=== PATIENT | male | born 1950 | race Caucasian/White ===

== ENCOUNTER 2019-01-21 15:58 | Emergency (ER) | payer OTHER ==
[2019-01-21 16:09] VITALS: BP 153/75; TEMP 98.1; BMI 36.1
--- NOTE | 2019-01-21 17:02 | DI ---
EXAM: Three views of the left elbow. History: Left elbow trauma. Findings: Mildly displaced fracture of the radial neck. Joint effusion is seen at the elbow. No di slocation. Impression: Mildly displaced radial neck fracture
--- NOTE | 2019-01-21 17:04 | DI ---
Exam: Three-view left hand. Date: 01/21/2019. Comparison: None. HISTORY: Pain. FINDINGS: The soft tissues are within normal limits. The mineralization is normal. The bones are i ntact and no fracture is observed. The metacarpal phalangeal joints and interphalangeal joints are m aintained. Impression: No acute osseous abnormality in the left hand.
--- NOTE | 2019-01-21 17:05 | DI ---
Exam: Three-view left wrist. Date: 01/21/2019. Comparison: None. HISTORY: Pain after a fall. FINDINGS: The soft tissues are within normal limits. The mineralization is normal. The bones are i ntact and no fracture or dislocation is observed. A cleft is identified in the mid body of the scaph oid adjacent to the capitate but this does not appear to represent a fracture. The joint spaces are preserved. Impression: No acute osseous abnormality in the left wrist.
--- NOTE | 2019-01-21 17:48 | ED.PDOC ---
General ED Provider: Dr. PARAMJIT ANNE Chief Complaint: Fall Stated Complaint: ELBOW PAIN LEFT SIDE AFTER A FALL ALSO HAS WRIST PAIN Time Seen by Physician: 16:00 Mode of Arrival: Walk-In Information Source: Patient Exam Limitations: No limitations Primary Care Provider: BALWINDER BARON Nursing and Triage Documentation Reviewed and Agree: Yes Does patient meet sepsis criteria?: No System Inflammatory Response Syndrome: Not Applicable Sepsis Protocol: For patient's 13 years and over: Temp is 96.8 and below OR 101 and greater Pulse >90 BPM Resp >20/minute Acutely Altered Mental Status Are patient's symptoms suggestive of a new infection, such as: -Pneumonia -Skin, Soft Tissue -Endocarditis -UTI -Bone, Joint Infection -Implantable Device -Acute Abdominal Infection -Wound Infection -Meningitis -Blood Stream Catheter Infection -Unknown Musculoskeletal Complaint Exam - Upper Extremity Complaint/Exam Location of Pain: Reports: Left (ELBOW), Elbow, Wrist (LEFT) Onset/Duration: TODAY Symptoms Are: Still present Timing: Constant Episodes Lasting: Hours Initial Severity: Moderate Current Severity: Moderate Location: Reports: Discrete (ELBOW) Character: Reports: Dull Aggravating: Reports: Movement, Lifting, Flexion, Extension, Internal rotation, External rotation, Abduction Alleviating: Reports: Rest Non-Orthopedic Risk Factors: Reports: None DVT Risk Factors: Reports: None Septic Arthritis Risk Factors: Reports: None Related Surgical History: Reports: None Upper Extremity Findings: Present: Tenderness (ELBOW ). Absent: Swelling, Ecchymosis, Abnormal contour, Rotation, Ligamentous instability, Laceration, Erythema, Warmth, Blisters, Foreign body NV Bundle Intact Distal to Injury: No Compartment Syndrome Risk Factors: Present: Pain Differential Diagnoses: Closed Fracure Review of Systems - Review Of Systems Constitutional: Reports: No symptoms Eyes: Reports: No symptoms Ears, Nose, Mouth, Throat: Reports: No symptoms Respiratory: Reports: No symptoms Cardiac: Reports: No symptoms GI: Reports: No symptoms : Reports: No symptoms Musculoskeletal: Reports: Joint pain (ELBOW WRIST LEFT) Skin: Reports: No symptoms Neurological: Reports: No symptoms Endocrine: Reports: No symptoms Hematologic/Lymphatic: Reports: No symptoms All Other Systems: Reviewed and Negative Past Medical History - Past Medical History Previously Healthy: Yes Endocrine: Reports: None Cardiovascular: Reports: None Respiratory: Reports: None Hematological: Reports: None Gastrointestinal: Reports: None Genitourinary: Reports: None Neuro/Psych: Reports: None Musculoskeletal: Reports: None Cancer: Reports: None - Surgical History General Surgical History: Reports: None - Family History Family History: Reports: None - Social History Smoking Status: Former smoker Hx Substance Use: No Alcohol Screening: Occasionally - Immunizations Tetanus Shot up to Date: Yes Physical Exam - Physical Exam Appearance: Well-appearing, No pain distress, Well-nourished Eyes: SUMIT, EOMI, Conjunctiva clear ENT: Ears normal, Nose normal, Oropharynx normal Respiratory: Airway patent, Breath sounds clear, Breath sounds equal, Respirations nonlabored Cardiovascular: RRR, Pulses normal, No rub, No murmur GI/: Soft, Nontender, No masses, Bowel sounds normal, No Organomegaly Musculoskeletal: Limited ROM (LEFT ELBOW) Skin: Warm, Dry, Normal color Neurological: Sensation intact, Motor intact, Reflexes intact, Cranial nerves intact, Alert, Oriented Psychiatric: Affect appropriate, Mood appropriate Interpretation - Radiology Interpretation Radiology Interpretation By: Radiologist Radiology Results: Positive (RADIAL HEAD FRACTURE) Critical Care Note - Critical Care Note Total Time (mins): 0 Course - Course Orders, Labs, Meds: Orders Category Date Time Status Splint [ED SPLINT APPLICATION] .ONCE EMERGENCY 01/21/19 17:23 Active ELBOW, LEFT MIN 3 VIEWS Stat RADS 01/21/19 16:16 Completed HAND, LEFT 3 VIEWS Stat RADS 01/21/19 16:16 Completed WRIST, LEFT 3 VIEWS Stat RADS 01/21/19 16:16 Completed Vital Signs: Temp Pulse Resp BP Pulse Ox 01/21/19 16:00 98.1 F 75 20 153/75 H 94 L Departure - Departure Time of Disposition: 17:48 Disposition: HOME SELF-CARE Discharge Problem: Radial head fracture, closed Qualifiers: Encounter type: initial encounter Fracture alignment: nondisplaced Laterality: left Qualified Code(s): S52.125A - Nondisplaced fracture of head of left radius , initial encounter for closed fracture Instructions: Elbow Fracture (ED) Condition: Good Pt referred to PMD for follow-up: Yes IPMP verified?: No Additional Instructions: follow up with your PCP for referral to ortho Take medication as prescribed Prescriptions: Hydrocodone Bit/Acetaminophen [Crosby 10-325] 1 each PO Q6HR 5 Days #20 tablet Allergies/Adverse Reactions: Allergies No Known Allergies Allergy (Unverified 01/21/19 16:09) Home Medications: Ambulatory Orders Hydrocodone Bit/Acetaminophen [Crosby 10-325] 1 each PO Q6HR 5 Days #20 tablet
== END 2019-01-21 17:45 | disposition home or self-care (01) ==
LOC: ED 15:58
DX: S52.125A Nondisplaced fracture of head of left radius, initial encounter for closed fracture (principal); M25.532 Pain in left wrist; W19.XXXA Unspecified fall, initial encounter
CPT/HCPCS: 99283